=== PATIENT | male | born 1985 | race Caucasian/White ===

== ENCOUNTER 2023-08-08 10:43 | Outpatient (CLI) | payer OTHER, SELFPAY | END 2023-08-08 10:44 | disposition home or self-care (01) | LOC: LKVREF 10:45 | PROVIDERS: Visit Provider Emergency Medicine | DX: Z00.00 Encounter for general adult medical examination without abnormal findings (principal); R42 Dizziness and giddiness | CPT/HCPCS: 80053 ==

== ENCOUNTER 2023-08-15 09:48 | Outpatient (CLI) | payer OTHER, SELFPAY | END 2023-08-15 09:49 | disposition home or self-care (01) | PROVIDERS: PCP Emergency Medicine; Visit Provider Emergency Medicine | DX: Z00.00 Encounter for general adult medical examination without abnormal findings (principal); Z13.6 Encounter for screening for cardiovascular disorders | CPT/HCPCS: 80061 ==

== ENCOUNTER 2023-11-28 11:53 | Outpatient (CLI) | payer OTHER, SELFPAY | END 2023-11-28 11:54 | disposition home or self-care (01) | PROVIDERS: PCP Emergency Medicine; Visit Provider Physician Assistant Medical | DX: R21 Rash and other nonspecific skin eruption (principal); B35.4 Tinea corporis | CPT/HCPCS: 80053; 84443; 86258; 86364 ==

== ENCOUNTER 2024-12-04 12:47 | Outpatient (CLI) | payer OTHER, SELFPAY | END 2024-12-04 12:48 | disposition home or self-care (01) | LOC: LKVREF 12:47 | PROVIDERS: PCP Emergency Medicine; Visit Provider Emergency Medicine | DX: Z12.5 Encounter for screening for malignant neoplasm of prostate (principal); Z80.42 Family history of malignant neoplasm of prostate | CPT/HCPCS: G0103 ==